=== PATIENT | female | born 1945 | race Caucasian/White ===

== ENCOUNTER 2020-02-26 09:30 | Outpatient (CLI) | payer MEDICARE, SELFPAY ==
--- NOTE | ~2020-02-26 | XR_ITS ---
XR foot RT min 3V DATE: 02/26/2020 09:47 INDICATION: Twisted foot. Roslyn a pop. Lateral foot pain. TECHNIQUE: 4 views COMPARISON: None FINDINGS: There is a transverse nondisplaced fracture at the base of the fifth metatarsal bone. Diffuse osteopenia. IMPRESSION: Nondisplaced transverse fracture of the base of the fifth metatarsal bone Osteopenia Reviewed, dictated and finalized at location B. IMPRESSION: Nondisplaced transverse fracture of the base of the fifth metatarsa l bone Osteopenia
== END 2020-02-26 09:31 | disposition home or self-care (01) ==
PROVIDERS: PCP Internal Medicine; Visit Provider Internal Medicine
DX: M79.671 Pain in right foot (principal)
CPT/HCPCS: 73630

== ENCOUNTER 2020-08-12 13:59 | Outpatient (CLI) | payer MEDICARE, SELFPAY ==
[2020-08-12 15:22] LABS: SARS-CoV-2 Ag Negative (Negative)
[2020-08-13 01:27] LABS: SARS-CoV-2 RNA PCR Negative
== END 2020-08-12 14:00 | disposition home or self-care (01) ==
LOC: CHSLAB 14:04
PROVIDERS: PCP Internal Medicine; Visit Provider Internal Medicine
DX: Z20.822 Contact with and (suspected) exposure to COVID-19 (principal)
CPT/HCPCS: 87426; C9803; U0003; U0005

== ENCOUNTER 2021-01-28 11:38 | Outpatient (CLI) | payer MEDICARE, SELFPAY ==
--- NOTE | ~2021-01-28 | XR_ITS ---
XR chest 2V DATE: 01/28/2021 12:10 INDICATION: Asthma exacerbation TECHNIQUE: PA and lateral views COMPARISON: 05/24/2017 two-view chest FINDINGS: Bilateral hyperinflation consistent with obstructive airways disease. No pulmonary infiltrate or consolidation, pleural effusion or pulmonary vascular congestion or pneumo thorax is evident. Normal heart size. No hilar or mediastinal enlargement. Diffuse osteopenia. IMPRESSION: Bilateral hyperinflation; no active cardiac pulmonary disease Osteopenia Reviewed, dictated and finalized at location A.
[2021-01-28 11:57] LABS: Add Urine Microscopic? NO; Appearance Urine Clear (Clear); Bilirubin Urine Negative (Negative); Blood Urine Negative (Negative); Color Urine Light Yellow (Yellow); Glucose Urine UA Negative (Negative); Ketones Urine Negative (Negative); Leukocyte Esterase Ur Negative LEU/UL (Negative); Nitrate Urine Negative (Negative); Protein Urine Negative (Negative); Urobilinogen Urine 0.2 mg/dL (0.2-1.0)
[2021-01-28 12:10] LABS: Alanine Aminotransferase 22 U/L (14-59); Alkaline Phosphatase 95 U/L (46-116); Anion Gap 11 mmol/L (8-16); Aspartate Amino Transferase 18 U/L (15-37); Bilirubin,Total 0.7 mg/dL (0.00-1.00); Blood Urea Nitrogen 18 mg/dL (7-18); CRP < 0.5 mg/dL (0.0-0.9); Calcium 8.7 mg/dL (8.5-10.1); Carbon Dioxide 28 mmol/L (21-32); Chloride 104 mmol/L (98-108); Estimated Glomerular Filt Rate > 60; Glucose 106 mg/dL (70-99); Osmolality Calculated 297 mOsm/kg (285-295); Potassium 3.8 mmol/L (3.5-5.1); Sodium 143 mmol/L (136-145); Total Protein 7.3 g/dL (6.4-8.2)
[2021-01-28 12:12] LABS: Basophils Absolute Auto 0.05 K/mm3 (0.00-0.10); Basophils Percent Auto 0.8 % (0.0-1.0); Eosinophils Absolute Auto 0.55 K/mm3 (0.02-0.50); Eosinophils Percent Auto 8.8 % (1.0-6.0); Hematocrit 42.3 % (35.0-42.0); Hemoglobin 13.6 g/dL (11.7-13.8); Immature Granulocyte Absolute 0.01 K/mm3 (0.00-0.00); Immature Granulocyte Percent A 0.2 % (0.0-0.0); Lymphocytes Absolute Auto 1.94 K/mm3 (1.10-4.50); Lymphocytes Percent Auto 31.1 % (18.0-42.0); Mean Corpuscular HGB Conc 32.2 g/dL (32.0-36.0); Mean Corpuscular Hemoglobin 29.8 pg (27.0-31.0); Mean Corpuscular Volume 92.6 fL (78.0-102.0); Mean Platelet Volume 10.7 fl (9.2-11.8); Monocytes Absolute Auto 0.43 K/mm3 (0.10-0.90); Monocytes Percent Auto 6.9 % (2.0-11.0); Neutrophils Absolute Auto 3.3 K/mm3 (1.7-7.2); Neutrophils Percent Auto 52.2 % (50.0-70.0); Platelet Count Result 248 K/mm3 (150-420); Red Blood Count 4.57 M/mm3 (4.20-5.40); White Blood Count 6.2 K/mm3 (4.8-10.8)
== END 2021-01-28 11:39 | disposition home or self-care (01) ==
LOC: CHSLAB 11:41
PROVIDERS: PCP Internal Medicine; Visit Provider Internal Medicine
DX: J45.901 Unspecified asthma with (acute) exacerbation (principal)
CPT/HCPCS: 36415; 71046; 80053; 81003; 85025; 86140

== ENCOUNTER 2021-07-22 10:57 | Outpatient (CLI) | payer MEDICARE, SELFPAY ==
[2021-07-22 12:04] LABS: Influenza Control Valid (Valid)
[2021-07-22 12:12] LABS: SARS-CoV-2 Ag Negative (Negative)
== END 2021-07-22 10:58 | disposition home or self-care (01) ==
LOC: CHSLAB 11:00
PROVIDERS: PCP Internal Medicine; Visit Provider Internal Medicine
DX: J06.9 Acute upper respiratory infection, unspecified (principal); Z20.822 Contact with and (suspected) exposure to COVID-19
CPT/HCPCS: 87426; 87804; C9803

== ENCOUNTER 2021-12-12 11:46 | Outpatient (CLI) | payer MEDICARE, SELFPAY ==
--- NOTE | ~2021-12-12 | XR_ITS ---
XR_CERV2-3V_CR 12/12/2021 12:49 Indication: Neck pain and radiculopathy Procedure: 3 views of the cervical spine Comparison: No prior studies for comparison. Findings: There is mild degenerative disc disease at C5-6 and C6-7. There is mild multilevel uncinate hypertrophy. Lung apices are normal. No acute fracture or traumatic malalignment. No prevertebral so ft tissue swelling. There are ventral osteophytes at C4-5, C5-6 and C6-7. Odontoid process within nor mal limits. Impression: 1: Moderate cervical spondylosis. Reviewed, dictated and finalized at location A. Impression: 1: Moderate cervical spondylosis.
--- NOTE | ~2021-12-12 | XR_ITS ---
EXAM: XR shoulder RT min 2V DATE: 12/12/2021 12:49 HISTORY: R UE RADICULOPATHY . COMPARISON: None available. FINDINGS: Osteopenia. No fracture or dislocation. No lytic or blastic lesion. Glenohumeral narrowing . No erosion or periosteal change. Calcified hilar nodes. Soft tissues within normal limits. IMPRESSION: No acute osseous finding in the right shoulder. Reviewed, dictated and finalized at location K.
[2021-12-12 12:16] LABS: Basophils Absolute Auto 0.07 K/mm3 (0.00-0.10); Eosinophils Percent Auto 7.3 % (1.0-6.0); Hematocrit 44.7 % (35.0-42.0); Hemoglobin 14.4 g/dL (11.7-13.8); Immature Granulocyte Absolute 0.01 K/mm3 (0.00-0.00); Immature Granulocyte Percent A 0.1 % (0.0-0.0); Lymphocytes Absolute Auto 1.38 K/mm3 (1.10-4.50); Lymphocytes Percent Auto 20.2 % (18.0-42.0); Mean Corpuscular HGB Conc 32.2 g/dL (32.0-36.0); Mean Corpuscular Hemoglobin 30.5 pg (27.0-31.0); Mean Corpuscular Volume 94.7 fL (78.0-102.0); Mean Platelet Volume 10.7 fl (9.2-11.8); Monocytes Absolute Auto 0.39 K/mm3 (0.10-0.90); Monocytes Percent Auto 5.7 % (2.0-11.0); Neutrophils Absolute Auto 4.5 K/mm3 (1.7-7.2); Neutrophils Percent Auto 65.7 % (50.0-70.0); Platelet Count Result 261 K/mm3 (150-420); Red Blood Count 4.72 M/mm3 (4.20-5.40); Red Cell Distribution Width 12.8 % (11.6-14.4); White Blood Count 6.8 K/mm3 (4.8-10.8)
[2021-12-12 12:33] LABS: Alanine Aminotransferase 29 U/L (14-59); Alkaline Phosphatase 105 U/L (46-116); Anion Gap 6 mmol/L (8-16); Aspartate Amino Transferase 24 U/L (15-37); Bilirubin,Total 0.9 mg/dL (0.00-1.00); Blood Urea Nitrogen 10 mg/dL (7-18); Carbon Dioxide 31 mmol/L (21-32); Chloride 101 mmol/L (98-108); Estimated Glomerular Filt Rate > 60; Glucose 96 mg/dL (70-99); Osmolality Calculated 285 mOsm/kg (285-295); Potassium 3.7 mmol/L (3.5-5.1); Sodium 138 mmol/L (136-145); Total Protein 7.8 g/dL (6.4-8.2)
[2021-12-12 12:35] LABS: CRP < 0.2 mg/dL (0.0-0.9)
== END 2021-12-12 11:47 | disposition home or self-care (01) ==
LOC: CHSLAB 11:53
PROVIDERS: PCP Internal Medicine; Visit Provider Internal Medicine
DX: M47.22 Other spondylosis with radiculopathy, cervical region (principal); G62.9 Polyneuropathy, unspecified
CPT/HCPCS: 36415; 72040; 73030; 80053; 85025; 86038; 86039; 86140; 86787

== ENCOUNTER 2021-12-27 10:41 | Outpatient (CLI) | payer MEDICARE, SELFPAY ==
[2021-12-30 20:54] LABS: Varicella IgM Antibody <=0.90 (<=0.90)
== END 2021-12-27 10:42 | disposition home or self-care (01) ==
LOC: CHSLAB 10:46
PROVIDERS: PCP Internal Medicine; Visit Provider Internal Medicine
DX: G62.9 Polyneuropathy, unspecified (principal)
CPT/HCPCS: 36415; 86787

== ENCOUNTER 2022-03-10 15:09 | Emergency (ER) | payer MEDICARE, SELFPAY ==
--- NOTE | ~2022-03-10 | XR_ITS ---
XR chest 1V portable 03/10/2022 15:47 Indication: Shortness of breath Procedure: AP portable chest Comparison: 01/28/2021 Findings: Heart size normal. No focal air space disease, pulmonary edema, pleural effusion or suspect ed pneumothorax. Chronic bibasilar atelectasis/scarring. The lungs are hyperinflated which is consist ent with, but not diagnostic of chronic obstructive pulmonary disease. Impression: 1: No acute cardiopulmonary disease. Reviewed, dictated and finalized at location B. Impression: 1: No acute cardiopulmonary disease.
[2022-03-10 15:09] VITALS: BP 154/79; PULSE 81; RESP 20; TEMP 36.7; O2SAT 93
--- NOTE | 2022-03-10 15:16 | ED.SOB ---
HPI - SOB/Dyspnea General Chief Complaint: Shortness of Breath/Dyspnea Stated Complaint: ambulance Time Seen by Provider: 03/10/22 15:16 Source: patient Mode of arrival: EMS History of Present Illness HPI Narrative: 77-year-old female with a history of COPD/ asthma on chronic steroids presents to the ER with a 10 day history of -- cough with mucopurulent sputum -- wheezing -- shortness of breath -- nasal congestion MD elicited complaint: shortness of breath and cough Pertinent past history: COPD and asthma Onset (ago): day(s) ( started around 7 days ago) Timing: constant Severity: moderate Exacerbating factors: nothing Relieving factors: nothing Known history of: COPD and asthma Associated symptoms: denies other symptoms Treatment prior to arrival: none Related Data Allergies Allergy/AdvReac Type Severity Reaction Status Date / Time iodine Allergy Severe NEUROPATHY Verified 09/18/12 12:12 fluticasone Allergy Unknown RESP Verified 09/18/12 12:12 DISTRESS Review of Systems Review of Systems: All systems reviewed & are unremarkable except as noted in HPI and below Constitutional: Constitutional: Reports as per HPI and Reports no additional constitutional complaints Eyes: Eyes: Reports as per HPI and Reports no additional eye complaints ENT: Reports system reviewed and no additional complaints, except as documented and Reports as per HPI Cardiovascular: Cardiovascular: Reports as per HPI and Reports no additional cardiovascular complaints Respiratory: Respiratory: Reports as per HPI, Reports no additional respiratory complaints, Reports cough, Reports dyspnea and Reports wheezing Gastrointestinal: Gastrointestinal: Reports as per HPI and Reports no additional gastrointestinal complaints Genitourinary: Genitourinary: Reports no additional female genitourinary complaints Musculoskeletal: Musculoskeletal: Reports no additional musculoskeletal complaints and Reports as per HPI Integumentary/Breasts: Skin/Breast: Reports system reviewed and no additional complaints, except as docu and Reports as per HPI Neurologic: Reports system reviewed and no additional complaints, except as documented and Reports as per HPI Psychiatric: Psychiatric: Reports no additional psychiatric complaints and Reports as per HPI Endocrine: Endocrine: Reports no additional endocrine complaints and Reports as per HPI Hematologic/Lymphatic: Hematologic/Lymphatic: Reports no additional hematologic/lymphatic complaints and Reports as per HPI Allergic/Immunologic: Allergic/Immunologic: Reports no additional allergic/immunologic complaints and Reports as per HPI [facility] Past Medical History Medical History (Updated 03/10/22 @ 18:07 by Tyrell Cervantes MD) COPD (chronic obstructive pulmonary disease) Family History Family History Father Family history of rheumatoid arthritis Hypertension Family history of elevated blood lipids, Onset Age: 90 Patient's father is Mother Family history of rheumatic fever Hypertension Social History Social History Second hand tobacco smoke exposure: No Alcohol intake: current Exam Const: General: ill appearing Nutritional Appearance: thin Orientation/consciousness: patient oriented x3 Limitations: no limitations HENMT: Head: normal to inspection Ears: external ears normal General nose exam: Normal external nose present Face and sinus: normal facial exam Mouth: Yes Normal oral and palatal mucosa present Throat: posterior oropharynx normal Eyes: Conjunctivae: conjunctivae normal Pupils: Equal, round and reactive pupils present EOM: EOMs intact bilaterally Direct Ophthalmoscopy: no photophobia Neck: Neck: normal visual inspection, no lymphadenopathy and no meningeal signs Resp: Effort & Inspection: labored and uses accessory muscles Auscultation: wheezes a
--- NOTE | 2022-03-10 15:32 | ECG_ITS ---
Measurements Intervals Garner Rate: 82 P: 82 ME: 180 QRS: 53 QRSD: 82 T: 71 QT: 382 QTc: 449 Interpretive Statements SINUS RHYTHM WITH OCCASIONAL SUPRAVENTRICULAR PREMATURE COMPLEXES NONSPECIFIC ST CHANGES NO PREVIOUS ECG AVAILABLE FOR COMPARISON Electronically Signed On 03-11-2022 13:44:04 CDT by Jessica Aguilera M.D.
[2022-03-10 15:35] VITALS: PULSE 81
[2022-03-10 15:49] LABS: Base Excess ABG -2.3 mmol/L (0-2); Device ROOM AIR; HCO3 ABG 21.2 mmol/L (23-29); Modified Allen's Test Pass; Oxygen Content ABG 18.4 %vol (16.0-22.0); Oxygen Saturation ABG 89.7 % (95-97); Oxyhemoglobin 89.3 % (94-100); PO2 ABG 54.7 mmHg (75-85); Site Drawn RIGHT RADIAL; Total Hemoglobin 14.7 g/dL (12.0-18.0); pH ABG 7.43 (7.35-7.45)
[2022-03-10 15:55] LABS: Basophils Absolute Auto 0.05 K/mm3 (0.00-0.10); Basophils Percent Auto 0.8 % (0.0-1.0); Eosinophils Absolute Auto 0.63 K/mm3 (0.02-0.50); Eosinophils Percent Auto 9.9 % (1.0-6.0); Hemoglobin 13.6 g/dL (11.7-13.8); Immature Granulocyte Absolute 0.01 K/mm3 (0.00-0.00); Immature Granulocyte Percent A 0.2 % (0.0-0.0); Lymphocytes Absolute Auto 2.07 K/mm3 (1.10-4.50); Lymphocytes Percent Auto 32.5 % (18.0-42.0); Mean Corpuscular HGB Conc 32.4 g/dL (32.0-36.0); Mean Corpuscular Hemoglobin 30.4 pg (27.0-31.0); Mean Platelet Volume 10.2 fl (9.2-11.8); Monocytes Absolute Auto 0.42 K/mm3 (0.10-0.90); Monocytes Percent Auto 6.6 % (2.0-11.0); Neutrophils Absolute Auto 3.2 K/mm3 (1.7-7.2); Platelet Count Result 239 K/mm3 (150-420); Red Blood Count 4.47 M/mm3 (4.20-5.40); Red Cell Distribution Width 13.3 % (11.6-14.4); White Blood Count 6.4 K/mm3 (4.8-10.8)
[2022-03-10 16:14] LABS: Alanine Aminotransferase 23 U/L (14-59); Alkaline Phosphatase 84 U/L (46-116); Anion Gap 11 mmol/L (8-16); Aspartate Amino Transferase 19 U/L (15-37); Bilirubin,Total 0.9 mg/dL (0.00-1.00); Blood Urea Nitrogen 10 mg/dL (7-18); Calcium 8.8 mg/dL (8.5-10.1); Carbon Dioxide 25 mmol/L (21-32); Chloride 99 mmol/L (98-108); Estimated Glomerular Filt Rate > 60; Glucose 119 mg/dL (70-99); NT Pro B Type Natriuretic Pept 90 pg/mL (0-450); Osmolality Calculated 280 mOsm/kg (285-295); Potassium 3.1 mmol/L (3.5-5.1); Sodium 135 mmol/L (136-145); Total Protein 7.2 g/dL (6.4-8.2)
[2022-03-10 16:17] LABS: Troponin I 86.8 ng/L (0.00-60.4)
[2022-03-10 16:28] LABS: Influenza A QL RT-PCR Negative (Negative); Influenza B QL RT-PCR Negative (Negative); SARS-CoV-2 RNA PCR Negative (Negative)
[2022-03-10 17:20] VITALS: BP 142/88; PULSE 92; RESP 20; O2SAT 87
[2022-03-10] MEDS: POTASSIUM CHLORIDE 20 MEQ TABLET 40 MEQ PO (17:37)
--- NOTE | 2022-03-10 17:37 | PC.NURSE ---
pt ambulated to bathroom, increased shortness of breath.
[2022-03-10 17:38] LABS: Add Urine Microscopic? YES; Appearance Urine Clear (Clear); Bilirubin Urine Negative (Negative); Blood Urine Trace-Intact (Negative); Color Urine Light Yellow (Yellow); Glucose Urine UA Negative (Negative); Ketones Urine 1+ (Negative); Leukocyte Esterase Ur Negative (Negative); Nitrate Urine Negative (Negative); Protein Urine 1+ (Negative); Urobilinogen Urine 0.2 mg/dL (0.2-1.0)
[2022-03-10 17:41] LABS: Bacteria Urine Trace /hpf; RBC Urine 0-2 /hpf (0-2); Squamous Epithelial Cell Urine Few /hpf (Few); WBC Urine None seen /hpf (0-3)
[2022-03-10 18:04] VITALS: BP 142/85; PULSE 81; RESP 20; TEMP 37.1; O2SAT 97
--- NOTE | 2022-03-10 18:47 | PC.NURSE ---
1830 pt taken to bathroom then loaded to ems cot. increased shortness of breath with exertion. oxygen in place . pt alert and oriented. pt family member notified of facility , room and phone number for [facility].
== END 2022-03-10 18:45 | disposition short-term general hospital (02) ==
PROVIDERS: Emergency Provider Internal Medicine Critical Care Medicine; PCP Internal Medicine
DX: J96.01 Acute respiratory failure with hypoxia (principal); J44.1 Chronic obstructive pulmonary disease with (acute) exacerbation; I21.4 Non-ST elevation (NSTEMI) myocardial infarction; D72.10 Eosinophilia, unspecified; Z20.822 Contact with and (suspected) exposure to COVID-19
CPT/HCPCS: 36600; 71045; 80053; 81001; 82805; 83605; 83880; 84484; 85025; 87502; 87804; 93005; 96365; 96367; 99285; A9270; C9803; J0456; J0696; U0003; U0005

== ENCOUNTER 2022-03-17 15:05 | Outpatient (CLI) | payer MEDICARE, SELFPAY ==
[2022-03-17 15:27] LABS: Hematocrit 37.9 % (35.0-42.0); Hemoglobin 12.7 g/dL (11.7-13.8); Immature Granulocyte Absolute 0.02 K/mm3 (0.00-0.00); Immature Granulocyte Percent A 0.3 % (0.0-0.0); Lymphocytes Absolute Auto 0.77 K/mm3 (1.10-4.50); Lymphocytes Percent Auto 11.9 % (18.0-42.0); Mean Corpuscular HGB Conc 33.5 g/dL (32.0-36.0); Mean Corpuscular Hemoglobin 31.1 pg (27.0-31.0); Mean Corpuscular Volume 92.7 fL (78.0-102.0); Mean Platelet Volume 10.2 fl (9.2-11.8); Monocytes Absolute Auto 0.18 K/mm3 (0.10-0.90); Monocytes Percent Auto 2.8 % (2.0-11.0); Neutrophils Absolute Auto 5.5 K/mm3 (1.7-7.2); Platelet Count Result 250 K/mm3 (150-420); Red Blood Count 4.09 M/mm3 (4.20-5.40); White Blood Count 6.5 K/mm3 (4.8-10.8)
[2022-03-17 15:40] LABS: Anion Gap 5 mmol/L (8-16); Blood Urea Nitrogen 15 mg/dL (7-18); Calcium 8.7 mg/dL (8.5-10.1); Carbon Dioxide 28 mmol/L (21-32); Chloride 98 mmol/L (98-108); Estimated Glomerular Filt Rate > 60; Glucose 120 mg/dL (70-99); Osmolality Calculated 273 mOsm/kg (285-295); Potassium 3.7 mmol/L (3.5-5.1); Sodium 131 mmol/L (136-145)
== END 2022-03-17 15:06 | disposition home or self-care (01) ==
LOC: CHSLAB 15:11
PROVIDERS: PCP Internal Medicine
DX: J96.01 Acute respiratory failure with hypoxia (principal)
CPT/HCPCS: 36415; 80048; 85025

== ENCOUNTER 2022-04-03 08:03 | Outpatient (RCR) | payer MEDICARE, SELFPAY ==
--- NOTE | 2022-04-03 12:08 | PTOPEVAL1 ---
Evaluation Information Assessment Status Evaluation Diagnosis Unsteady gait Onset 03/21/2022 Subjective Information Pt reports that she has been diagnosed with peripheral neuropathy and reports that this started after she got an MRI for her lungs. She feels that this is a reaction to the contrast-dye from the MRI. She reports that this got better after the initial onset but is still not 100%. She still has a lot of numbness and occasional pain that is sharp. Pt reports that she has had one fall in 2019 when she was cleaning out her applique sewer drain and slipped on algae. She fell and broke her elbow and shoulder but feels this was not so much because of her feet. She feels that is very careful, and took a fall prevention class recently . She also feels she is weaker. She feels the most off-balance when walking. She has 15 steps down into her basement that she uses at least once a day. Lives at home by herself. Has no pets at home . Has a walker, cane, and wheelchair at home but she does not use them. Reported Pain Level Pain Score 0: Self Report Assessment PT Clinical Summary Pt presents to physical therapy with unsteady gait due to peripheral neuropathy and demonstrates decreased strength and impaired static and dynamic balance. These deficits place her at an increased risk for falls and make it more difficulty for her to walk and work around her house without feelings of unsteadiness. She demonstrates the most balance difficulties with NBOS and visual suppression activities. She was provided with an HEP focused on safely improving balance strategies and strength. She will benefit from skilled PT to improve the aforementioned impairments, reduce risk for falls, and return to functional and recreational activities. Plan of Care Interventions Gait Training,Neuro Re-education,Patient/Caregiver Educati,Therapeutic Activities,Therapeutic Exercise PT Services Indicated Yes Treatment Frequency and 2x week for 10 visits Duration These treatments will address the objective and functional deficits as defined above. The patient will be advanced safely and appropriately in order for the patient to progress towards his/her prior level of function. Additional exercises will be introduced and as well as a comprehensive home exercise program upon discharge, if needed, ?to ensure carryover of functional ga
== END 2022-05-03 15:27 | disposition home or self-care (01) ==
LOC: CHSPT 08:03
PROVIDERS: PCP Internal Medicine; Visit Provider Internal Medicine
DX: R26.81 Unsteadiness on feet (principal); G62.9 Polyneuropathy, unspecified
CPT/HCPCS: 97110; 97112; 97161; 97530

== ENCOUNTER 2023-02-26 10:51 | Outpatient (CLI) | payer MEDICARE, SELFPAY ==
--- NOTE | ~2023-02-26 | CT_ITS ---
EXAMINATION: CT abdomen pelvis wo con DATE: 02/26/2023 12:09 INDICATION: Bowel obstruction. Right lower quadrant abdominal pain. TECHNIQUE: Computed tomography (CT) of the abdomen and pelvis was performed without intravenous contr ast. Automated exposure control and iterative reconstruction technique were employed. The dose-length product was 171.30 mGy-cm. COMPARISON: CT abdomen and pelvis 03/22/17, 09/15/12 FINDINGS: The visualized portions of the lung bases demonstrate mild atelectasis. No pleural effusion . The heart size is normal. No pericardial effusion. There is diffuse hepatic steatosis. The gallblad larry, spleen, are normal. There is fatty atrophy of the pancreas. There are multiple cystic lesions in the pancreas measuring up to 3.3 x 2.3 cm, worsened from 2.1 x 1.7 cm on 03/22/17. The adrenal glands and kidneys are normal. There is no urolithiasis. There is an anastomosis in the rectosigmoid. There are no dilated loops of bowel. The appendix is not visualized. Aortic atherosclerosis is noted. Ther e are no pathologically enlarged lymph nodes. There is no free intraperitoneal fluid. There is severe lower lumbar spondylosis. IMPRESSION: 1. Worsened cystic lesions of the pancreas. The differential diagnosis includes pseudocyst, intraduct al papillary mucinous neoplasm (IPMN), mucinous cystic neoplasm (MCN), serous cystadenoma, and neuroe ndocrine tumor. Consider abdomen MRI without and with contrast. Reviewed, dictated and finalized at location A. IMPRESSION: 1. Worsened cystic lesions of the pancreas. The differential diagnosis includes pseudocyst, intraductal papillary mucinous neoplasm (IPMN), mucinous cystic ne oplasm (MCN), serous cystadenoma, and neuroendocrine tumor. Consider abdomen MR I without and with contrast.
[2023-02-26 11:07] LABS: Basophils Absolute Auto 0.05 K/mm3 (0.00-0.10); Basophils Percent Auto 0.9 % (0.0-1.0); Eosinophils Absolute Auto 0.18 K/mm3 (0.02-0.50); Eosinophils Percent Auto 3.2 % (1.0-6.0); Hematocrit 42.2 % (35.0-42.0); Hemoglobin 14.3 g/dL (11.7-13.8); Immature Granulocyte Absolute 0.01 K/mm3 (0.00-0.00); Immature Granulocyte Percent A 0.2 % (0.0-0.0); Lymphocytes Absolute Auto 1.21 K/mm3 (1.10-4.50); Lymphocytes Percent Auto 21.3 % (18.0-42.0); Mean Corpuscular HGB Conc 33.9 g/dL (32.0-36.0); Mean Corpuscular Volume 91.3 fL (78.0-102.0); Mean Platelet Volume 9.9 fl (9.2-11.8); Monocytes Absolute Auto 0.43 K/mm3 (0.10-0.90); Monocytes Percent Auto 7.6 % (2.0-11.0); Neutrophils Absolute Auto 3.8 K/mm3 (1.7-7.2); Neutrophils Percent Auto 66.8 % (50.0-70.0); Platelet Count Result 263 K/mm3 (150-420); Red Blood Count 4.62 M/mm3 (4.20-5.40); White Blood Count 5.7 K/mm3 (4.8-10.8)
[2023-02-26 11:22] LABS: Alanine Aminotransferase 51 U/L (14-59); Albumin Level 4.2 g/dL (3.4-5.0); Alkaline Phosphatase 80 U/L (46-116); Amylase 37 U/L (25-115); Anion Gap 14 mmol/L (8-16); Aspartate Amino Transferase 45 U/L (15-37); Bilirubin,Total 2.7 mg/dL (0.00-1.00); Blood Urea Nitrogen 21 mg/dL (7-18); Calcium 9.3 mg/dL (8.5-10.1); Carbon Dioxide 26 mmol/L (21-32); Chloride 99 mmol/L (98-108); Estimated Glomerular Filt Rate > 60; Glucose 90 mg/dL (70-99); Lipase 18 U/L (16-77); Osmolality Calculated 291 mOsm/kg (285-295); Potassium 3.9 mmol/L (3.5-5.1); Sodium 139 mmol/L (136-145); Total Protein 7.4 g/dL (6.4-8.2)
[2023-02-26 13:31] LABS: Appearance Urine Clear (Clear); Bilirubin Urine 1+ (Negative); Blood Urine Negative (Negative); Color Urine Yellow (Yellow); Glucose Urine UA Negative (Negative); Ketones Urine 2+ (Negative); Leukocyte Esterase Ur Negative (Negative); Nitrate Urine Negative (Negative); Protein Urine Trace (Negative); Specific Grav Ur 1.025 (1.010-1.020); Urobilinogen Urine 0.2 mg/dL (0.2-1.0)
[2023-02-26 13:36] LABS: Add Urine Microscopic? YES; Bacteria Urine Trace /hpf; Mucus Urine Moderate /lpf; RBC Urine 0-2 /hpf (0-2); Squamous Epithelial Cell Urine Rare /hpf (Few); WBC Urine 0-3 /hpf (0-3)
[2023-03-03 13:37] LABS: CA 19-9 8 U/mL (<34); Carcinoembryonic Antigen 3.3 ng/mL (<2.5)
== END 2023-02-26 10:52 | disposition home or self-care (01) ==
LOC: CHSLAB 10:54
PROVIDERS: PCP Internal Medicine; Visit Provider Internal Medicine
DX: K56.609 Unspecified intestinal obstruction, unspecified as to partial versus complete obstruction (principal); D49.0 Neoplasm of unspecified behavior of digestive system; C25.9 Malignant neoplasm of pancreas, unspecified
CPT/HCPCS: 36415; 74176; 80053; 81001; 82150; 82378; 83690; 85025; 86301

== ENCOUNTER 2023-04-23 14:03 | Outpatient (CLI) | payer MEDICARE, SELFPAY ==
[2023-04-23 14:47] LABS: Alanine Aminotransferase 21 U/L (6-35); Albumin Level 4.5 g/dL (3.5-5.1); Alkaline Phosphatase 89 U/L (38-126); Aspartate Amino Transferase 36 U/L (14-36)
== END 2023-04-23 14:04 | disposition home or self-care (01) ==
LOC: ANHLAB 14:05
PROVIDERS: PCP Internal Medicine; Visit Provider Nurse Practitioner
DX: K86.9 Disease of pancreas, unspecified (principal); R17 Unspecified jaundice
CPT/HCPCS: 36415; 80076

== ENCOUNTER 2023-09-11 14:43 | Outpatient (CLI) | payer MEDICARE, SELFPAY ==
--- NOTE | ~2023-09-11 | CT_ITS ---
EXAMINATION: CT diagnostic chest wo con DATE: 09/11/2023 16:46 INDICATION: Chest pain, peripheral neuropathy TECHNIQUE: Computed tomography (CT) of the chest was performed without intravenous contrast. The dose -length product (DLP) was 124.88 mGy-cm. Automated exposure control and iterative reconstruction tech nique were employed. COMPARISON: None FINDINGS: There is moderate emphysema. There is a possible endobronchial lesion proximally in the rig ht lower lobe (image 72). No pleural effusion or pneumothorax. Calcified pulmonary nodules and calcif ied mediastinal lymph nodes are consistent with old granulomatous disease. No pathologically enlarged thoracic lymph nodes are identified. The heart size is normal. There is a healing anterior left fift h rib fracture. There is moderate thoracic spondylosis. Cystic lesion of the pancreas are again noted with follow-up recommendation unchanged. IMPRESSION: 1. Healing anterior left fifth rib fracture. 2. Possible endobronchial lesion in the right lower lobe. Finding could reflect mucous plugging versu s malignancy. Follow-up low-dose chest CT in three months is recommended. Reviewed, dictated and finalized at location L. BUILDER IMPRESSION: 1. Healing anterior left fifth rib fracture. 2. Possible endobronchial lesion in the right lower lobe. Finding could reflect mucous plugging versus malignancy. Follow-up low-dose chest CT in three months is recommended.
[2023-09-11 15:26] LABS: Basophils Absolute Auto 0.04 K/mm3 (0.00-0.10); Basophils Percent Auto 0.6 % (0.0-1.0); Eosinophils Absolute Auto 0.36 K/mm3 (0.02-0.50); Eosinophils Percent Auto 5.3 % (1.0-6.0); Hematocrit 41.6 % (35.0-42.0); Hemoglobin 13.5 g/dL (11.7-13.8); Immature Granulocyte Absolute 0.02 K/mm3 (0.00-0.00); Immature Granulocyte Percent A 0.3 % (0.0-0.0); Lymphocytes Absolute Auto 1.38 K/mm3 (1.10-4.50); Lymphocytes Percent Auto 20.2 % (18.0-42.0); Mean Corpuscular HGB Conc 32.5 g/dL (32.0-36.0); Mean Corpuscular Hemoglobin 30.2 pg (27.0-31.0); Mean Corpuscular Volume 93.1 fL (78.0-102.0); Mean Platelet Volume 10.6 fl (9.2-11.8); Monocytes Absolute Auto 0.49 K/mm3 (0.10-0.90); Monocytes Percent Auto 7.2 % (2.0-11.0); Neutrophils Absolute Auto 4.5 K/mm3 (1.7-7.2); Neutrophils Percent Auto 66.4 % (50.0-70.0); Platelet Count Result 236 K/mm3 (150-420); Red Blood Count 4.47 M/mm3 (4.20-5.40); Red Cell Distribution Width 12.8 % (11.6-14.4); White Blood Count 6.8 K/mm3 (4.8-10.8)
[2023-09-11 15:31] LABS: Appearance Urine Clear (Clear); Bilirubin Urine Negative (Negative); Blood Urine Negative (Negative); Color Urine Light Yellow (Yellow); Glucose Urine UA Negative (Negative); Ketones Urine Negative (Negative); Leukocyte Esterase Ur 1+ (Negative); Nitrate Urine Negative (Negative); Protein Urine Negative (Negative); Specific Grav Ur <= 1.005 (1.010-1.020); Urobilinogen Urine 0.2 mg/dL (0.2-1.0)
[2023-09-11 15:35] LABS: Add Urine Microscopic? YES; Bacteria Urine Trace /hpf; RBC Urine None seen /hpf (0-2); Squamous Epithelial Cell Urine Rare /hpf (Few)
[2023-09-11 15:36] LABS: D Dimer 0.42 mg/L (0.19-0.50)
[2023-09-11 15:48] LABS: Alanine Aminotransferase 27 U/L (14-59); Albumin Level 3.8 g/dL (3.4-5.0); Alkaline Phosphatase 101 U/L (46-116); Anion Gap 11 mmol/L (8-16); Aspartate Amino Transferase 23 U/L (15-37); Bilirubin,Total 0.9 mg/dL (0.00-1.00); Blood Urea Nitrogen 12 mg/dL (7-18); Calcium 8.7 mg/dL (8.5-10.1); Carbon Dioxide 27 mmol/L (21-32); Chloride 100 mmol/L (98-108); Creatine Kinase 102 U/L (26-192); Estimated Glomerular Filt Rate > 60; Glucose 95 mg/dL (70-99); Osmolality Calculated 285 mOsm/kg (285-295); Potassium 3.2 mmol/L (3.5-5.1); Sodium 138 mmol/L (136-145); Total Protein 7.4 g/dL (6.4-8.2); Troponin I 11.9 ng/L (0.00-60.4)
[2023-09-11 15:50] LABS: CRP < 0.1 mg/dL (0.0-0.9)
[2023-09-14 19:28] LABS: ANCA Screen Negative (Negative)
== END 2023-09-11 14:44 | disposition home or self-care (01) ==
PROVIDERS: PCP Internal Medicine; Visit Provider Internal Medicine
DX: R10.9 Unspecified abdominal pain (principal); R07.9 Chest pain, unspecified; S22.32XD Fracture of one rib, left side, subsequent encounter for fracture with routine healing; R91.8 Other nonspecific abnormal finding of lung field
CPT/HCPCS: 36415; 71250; 80053; 81001; 82550; 82553; 84484; 85025; 85380; 86036; 86140

== ENCOUNTER 2023-09-20 11:56 | Outpatient (CLI) | payer MEDICARE, SELFPAY ==
--- NOTE | ~2023-09-20 | DEXA_ITS ---
Bone Density Report Name: MIGUEL BROOKE Age: 78 Sex: Female Ethnicity: White Date of : 1945 Indication: postmenopausal; screening for osteoporosis; height loss; prior fracture; asthma or emphysema; hysterectomy; Referring Provider: MINGO GODFREY Study: Bone densitometry was performed. Exam Date: September 20, 2023 Accession number: [id number] Bone Density: Region BMD T-score Z-score Classification AP Spine(L1, L2, L3) 0.612 -3.7 -1.2 Osteoporosis Femoral Neck (Left) 0.370 -4.3 -2.1 Osteoporosis Total Hip (Left) 0.385 -4.6 -2.6 Osteoporosis World Health Organization criteria for BMD impression classify patients as: Normal (T-score at or above -1.0), Osteopenia (T-score between -1.0 and -2.5), or Osteoporosis (T-score at or below -2.5). 10-year Fracture Risk: FRAX not reported because: Some T-score for Spine Total or Hip Total or Femoral Neck at or below -2.5 Clinical Information Provided by Patient: Has had a low trauma fracture Has used the following medications: Fosamax (i.e. alendronate), Vitamin D Has the following medical conditions: Asthma or Emphysema, Hysterectomy Patient maximum height was 65 Menopause Age: 53 No regular weight bearing exercise Drinks caffeinated beverages Onset of menses at age 14 Number of children 0 Impression: The patient has established osteoporosis, based on the Left Total Hip T-score and the existence of a prior fracture. The patient has risk factors, including: previous fracture. Discussion: HIGH RISK OF FRACTURE. BONE DENSITY IS UNDESIRABLY LOW AT ONE OR MORE SKELETAL SITES, CONSISTENT WITH POSTMENOPAUSAL OSTEOPOROSIS. This patient's lowest T-score, in a patient who has previously fractured, meets the World Health Organization's (WHO) criteria for severe osteoporosis. In untreated patients, the risk of osteoporotic fracture increases approximately two-fold for each 1.0 SD decrease in T-score. Low bone density is not the only risk factor for fracture; also consider factors such as patient's age, frailty or poor health, risk of falling, risk of injury, previous osteoporotic fracture, family history of osteoporosis, cigarette smoking, low body weight, etc. Not everyone with low bone mineral density has osteoporosis; osteomalacia and other metabolic bone disorders should also be considered. Patients who have osteoporosis should be evaluated for specific diseases and conditions (secondary causes) that may cause or contribute to bone loss. The [place] Association [employer] Clinical Endocrinologists (AACE) and National Osteoporosis Foundation (NOF) recommend pharmacologic intervention for all postmenopausal women whose T-score is in this range. The patient should follow a healthful lifestyle (good nutrition with adequate calcium and vitamin D, and appropriate weight-bearing exercise). Follow-Up: Consider a repeat BMD and Vertebral Fracture Assessment (VFA) exam in 2 years or sooner if medically necessary,
== END 2023-09-20 11:57 | disposition home or self-care (01) ==
LOC: CHSIMG 11:57
PROVIDERS: PCP Internal Medicine; Visit Provider Internal Medicine
DX: Z78.0 Asymptomatic menopausal state (principal); M81.0 Age-related osteoporosis without current pathological fracture
CPT/HCPCS: 77080

== ENCOUNTER 2023-09-24 00:41 | Day surgery (SDC) | payer MEDICARE, SELFPAY ==
[2023-07-06 14:01] VITALS: BMI 20.1
[2023-09-03 13:44] VITALS: BMI 20.1
--- NOTE | 2023-09-21 12:31 | SUR.PREOP ---
Patient called regarding upcoming procedure. Reviewed preop instructions, appointment times, and procedure prep.
--- NOTE | 2023-09-21 15:05 | PM.HPGS ---
History of Present Illness History of Present Illness Consent: Risks, benefits, and alternatives have been discussed and questions answered. Patient agrees to proceed with procedure. Chief complaint: fam hx malignant neoplasm of digestive organs Narrative: Salma Zaldivar is a 78 year old female Referred for colon cancer screening. Her [place] colon[place] about 30 [place] There is apparently a family history of colon cancer Review of Systems Review of Systems: All systems reviewed & are unremarkable except as noted in HPI and below PMFSH Past Medical History Medical History Abnormal weight loss Constipation COPD (chronic obstructive pulmonary disease) Decreased appetite Elevated AST (SGOT) Elevated CEA Family hx of colon cancer Fatty pancreas History of small bowel obstruction Pancreatic lesion Total bilirubin, elevated Family History Family History Father Family history of rheumatoid arthritis Hypertension Family history of elevated blood lipids, Onset Age: 90 Patient's father is Mother Family history of rheumatic fever Hypertension Social History Social History Smoking status: Never smoker Second hand tobacco smoke exposure: No Alcohol intake: current Drinks per week: 2 Substance use: never Substance use type: does not use Living arrangements: alone Spiritual care concerns: No Meds Home Medications and Allergies Home Medications Medication Instructions Recorded Confirmed Type albuterol sulfate 1.25 mg/3 mL 1.25 mg inhalation BID PRN 03/10/22 09/24/23 History solution for nebulization Shortness Of Breath albuterol sulfate 90 mcg/actuation 2 puff inhalation BID PRN 03/10/22 09/24/23 History aerosol inhaler (Ventolin HFA) Shortness Of Breath budesonide 160 mcg-glycopyr 9 1 - 2 inh inhalation DAILY 06/19/23 09/24/23 History mcg-formot 4.8 mcg/actuation HFA inhaler (Breztri Aerosphere) cholecalciferol (vitamin D3) 10 10 mcg PO DAILY 07/06/23 09/24/23 History mcg (400 unit) tablet (Vitamin D3) fexofenadine 180 mg tablet 180 mg PO DAILY 07/06/23 09/24/23 History food supplemt, lactose-reduced 1 ea PO DAILY 07/06/23 09/24/23 History (Ensure oral liquid) polyethylene glycol 3350 17 17 g PO DAILY 07/06/23 09/24/23 History gram/dose oral powder (Miralax) psyllium husk 3.4 gram/5.4 gram 1 - 2 tsp PO DAILY 07/06/23 09/24/23 History oral powder (Metamucil) triamcinolone acetonide 55 mcg 1 spray intranasal DAILY 07/06/23 09/24/23 History nasal spray aerosol (Nasacort) Allergies Allergy/AdvReac Type Severity Reaction Status Date / Time fluticasone Allergy Severe RESP Verified 09/24/23 11:46 DISTRESS gadobenic acid Allergy Severe Flushing Verified 09/24/23 11:46 [From contrast - MRI] iodine Allergy Severe NEUROPATHY Verified 09/24/23 11:46 iohexol Allergy Severe Flushing Verified 09/24/23 11:46 [From contrast - CT, X-RAY] Exam Const: General: alert Orientation/consciousness: patient oriented x3 Resp: Auscultation: clear to auscultation bilaterally Cardio: Rhythm: regular rhythm GI: GI Palp: Yes Soft to palpation and No Tenderness to palpation present (GI) Neuro: General: patient oriented x3 Assessment and Plan Assessment and plan (1) Family hx of colon cancer: Code(s): Z80.0 - Family history of malignant neoplasm of digestive organs Status: Acute Assessment and Plan: Colonoscopy with possible biopsy or polypectomy or cautery or injection of substances.
[2023-09-24 11:52] VITALS: BP 151/70; PULSE 80; RESP 16; TEMP 36.6; O2SAT 99
[2023-09-24] MEDS: LACTATED RINGERS 1,000 ML 150 ML IV CONT (12:05)
--- NOTE | 2023-09-24 12:58 | WPDANESEPPF ---
Anes - Initial Pre Proc Eval Procedure: Operation Date: 09/24/23 13:00 Proposed Procedures p Colonoscopy - Sha Montero MD Date/Time: 09/24/23 12:58 Surgeon: Sha Montero MD Pre Op Diagnosis: fam hx malignant neoplasm of digestive organs Patient Data Age: 78 Gender: F Height: 1.57 m Weight: 47.3 kg Last Vital Signs Temp 97.8 F 09/24/23 11:52 Pulse 80 09/24/23 11:52 Resp 16 09/24/23 11:52 BP 151/70 H 09/24/23 11:52 Pulse Ox 99 09/24/23 11:52 O2 Del Method Room Air 09/24/23 11:52 Allergies Allergy/AdvReac Type Severity Reaction Status Date / Time fluticasone Allergy Severe RESP Verified 09/24/23 11:46 DISTRESS gadobenic acid Allergy Severe Flushing Verified 09/24/23 11:46 [From contrast - MRI] iodine Allergy Severe NEUROPATHY Verified 09/24/23 11:46 iohexol Allergy Severe Flushing Verified 09/24/23 11:46 [From contrast - CT, X-RAY] Home Medications Medication Instructions Recorded Confirmed Type albuterol sulfate 1.25 mg/3 mL 1.25 mg inhalation BID PRN 03/10/22 09/24/23 History solution for nebulization Shortness Of Breath albuterol sulfate 90 mcg/actuation 2 puff inhalation BID PRN 03/10/22 09/24/23 History aerosol inhaler (Ventolin HFA) Shortness Of Breath budesonide 160 mcg-glycopyr 9 1 - 2 inh inhalation DAILY 06/19/23 09/24/23 History mcg-formot 4.8 mcg/actuation HFA inhaler (Breztri Aerosphere) cholecalciferol (vitamin D3) 10 10 mcg PO DAILY 07/06/23 09/24/23 History mcg (400 unit) tablet (Vitamin D3) fexofenadine 180 mg tablet 180 mg PO DAILY 07/06/23 09/24/23 History food supplemt, lactose-reduced 1 ea PO DAILY 07/06/23 09/24/23 History (Ensure oral liquid) polyethylene glycol 3350 17 17 g PO DAILY 07/06/23 09/24/23 History gram/dose oral powder (Miralax) psyllium husk 3.4 gram/5.4 gram 1 - 2 tsp PO DAILY 07/06/23 09/24/23 History oral powder (Metamucil) triamcinolone acetonide 55 mcg 1 spray intranasal DAILY 07/06/23 09/24/23 History nasal spray aerosol (Nasacort) Patient hx anesthesia problems: none Family hx anesthesia problems: none Results Review: All pre-operative results and documents have been reviewed as part of the pre-operative evaluation. [facility] Past Medical History Medical History Abnormal weight loss Constipation COPD (chronic obstructive pulmonary disease) Decreased appetite Elevated AST (SGOT) Elevated CEA Family hx of colon cancer Fatty pancreas History of small bowel obstruction Pancreatic lesion Total bilirubin, elevated Family History Family History Father Family history of rheumatoid arthritis Hypertension Family history of elevated blood lipids, Onset Age: 90 Patient's father is Mother Family history of rheumatic fever Hypertension Social History Social History Smoking status: Never smoker Second hand tobacco smoke exposure: No Alcohol intake: current Drinks per week: 2 Substance use: never Substance use type: does not use Living arrangements: alone Spiritual care concerns: No Anes - Eval Final PreProcedure Day of Procedure 09/24/23 12:58 Patient weight: normal Heart: regular rate and rhythm Lungs: clear to auscultation Airway: Mallampati scale class II Neurological: alert and oriented Last oral intake: >/= 8 hours ASA classification: III Emergent: no Anesthetic plan: proceed Anesthesia type and monitoring: general GIVS and standard monitoring Results Review: All pre-operative results and documents have been reviewed as part of the pre-operative evaluation. Informed Consent: The patient's anesthetic plan and its attendant risks and benefits were discussed with the patient/family/POA. Questions were solicited and answers provided to the satisfaction of the patient/
[2023-09-24 13:26] VITALS: BP 123/66; PULSE 74; RESP 18; O2SAT 100
[2023-09-24 13:36] VITALS: BP 121/75; PULSE 72; RESP 18; O2SAT 100
[2023-09-24 13:46] VITALS: BP 141/72; PULSE 70; RESP 18; O2SAT 99
== END 2023-09-24 13:56 | disposition home or self-care (01) ==
PROVIDERS: PCP Internal Medicine; Visit Provider Internal Medicine Gastroenterology
PROC: 0DJD8ZZ Inspection of Lower Intestinal Tract, Via Natural or Artificial Opening Endoscopic (ICD-10-PCS; CPT 45378; principal; 2023-09-24 13:00)
DX: Z12.11 Encounter for screening for malignant neoplasm of colon (principal); D12.8 Benign neoplasm of rectum; J44.9 Chronic obstructive pulmonary disease, unspecified; Z79.51 Long term (current) use of inhaled steroids; Z80.0 Family history of malignant neoplasm of digestive organs
CPT/HCPCS: 45381; 45385; 45380; 88305; J2704; J7120

== ENCOUNTER 2023-10-20 19:04 | Emergency (ER) | payer MEDICARE, SELFPAY ==
--- NOTE | ~2023-10-20 | XR_ITS ---
EXAMINATION: XR ankle RT min 3V DATE: 10/20/2023 19:49 INDICATION: Right ankle injury and pain. TECHNIQUE: 3 views of right ankle were obtained. COMPARISON: None. FINDINGS: Bone alignment is normal. No fracture. There is mild osteoarthritis of talonavicular joint. There is ankle soft tissue swelling. IMPRESSION: 1. No fracture. Reviewed, dictated and finalized at location A. IMPRESSION: 1. No fracture.
--- NOTE | ~2023-10-20 | XR_ITS ---
EXAMINATION: XR foot RT min 3V DATE: 10/20/2023 19:49 INDICATION: Right foot injury and pain. TECHNIQUE: 3 views of right foot were obtained. COMPARISON: None. FINDINGS: Bone alignment is normal. There is a nondisplaced transverse fracture of neck of fifth meta tarsal. There is mild osteoarthritis of some of the interphalangeal joints and talonavicular joint. IMPRESSION: 1. Nondisplaced transverse fracture of neck of fifth metatarsal. Reviewed, dictated and finalized at location A.
[2023-10-20 19:08] VITALS: BP 157/93; PULSE 85; RESP 18; TEMP 37.7; O2SAT 96
--- NOTE | 2023-10-20 20:04 | ED.LOWEXIN ---
HPI - Extremity Injury (Lower) General Chief Complaint: Extremity Injury, Lower Stated Complaint: foot pain Time Seen by Provider: 10/20/23 19:08 Source: patient and EMS Mode of arrival: ambulatory Limitations: no limitations History of Present Illness HPI Narrative: this is a 78-year-old female that has a peripheral neuropathy and felt that her fitful asleep and she tripped over her right foot causing pain and mild swelling with good brisk pedal pulse on the right has good range of motion in her lower extremity and toes although painful with with weight-bearing and with palpation. MD complaint: foot injury Onset (ago): hour(s) Injury: Right: foot ( lateral aspect of the right foot pain and tenderness with palpation) Type of Injury: inversion Place: home Severity: moderate Severity scale (1-10): 4 Relieving factors: immobilization Related Data Home Medications Medication Instructions Recorded Confirmed albuterol sulfate 1.25 mg/3 mL 1.25 mg inhalation BID PRN 03/10/22 09/24/23 solution for nebulization Shortness Of Breath albuterol sulfate 90 mcg/actuation 2 puff inhalation BID PRN 03/10/22 09/24/23 aerosol inhaler (Ventolin HFA) Shortness Of Breath budesonide 160 mcg-glycopyr 9 1 - 2 inh inhalation DAILY 06/19/23 09/24/23 mcg-formot 4.8 mcg/actuation HFA inhaler (Breztri Aerosphere) cholecalciferol (vitamin D3) 10 10 mcg PO DAILY 07/06/23 09/24/23 mcg (400 unit) tablet (Vitamin D3) fexofenadine 180 mg tablet 180 mg PO DAILY 07/06/23 09/24/23 food supplemt, lactose-reduced 1 ea PO DAILY 07/06/23 09/24/23 (Ensure oral liquid) polyethylene glycol 3350 17 17 g PO DAILY 07/06/23 09/24/23 gram/dose oral powder (Miralax) psyllium husk 3.4 gram/5.4 gram 1 - 2 tsp PO DAILY 07/06/23 09/24/23 oral powder (Metamucil) triamcinolone acetonide 55 mcg 1 spray intranasal DAILY 07/06/23 09/24/23 nasal spray aerosol (Nasacort) Allergies Allergy/AdvReac Type Severity Reaction Status Date / Time fluticasone Allergy Severe RESP Verified 10/20/23 19:20 DISTRESS gadobenic acid Allergy Severe Flushing Verified 10/20/23 19:20 [From contrast - MRI] iodine Allergy Severe NEUROPATHY Verified 10/20/23 19:20 iohexol Allergy Severe Flushing Verified 10/20/23 19:20 [From contrast - CT, X-RAY] Review of Systems Review of Systems: All systems reviewed & are unremarkable except as noted in HPI and below PMFSH Past Medical History Medical History Abnormal weight loss Constipation COPD (chronic obstructive pulmonary disease) Decreased appetite Elevated AST (SGOT) Elevated CEA Family hx of colon cancer Fatty pancreas History of small bowel obstruction Pancreatic lesion Total bilirubin, elevated Family History Family History Father Family history of rheumatoid arthritis Hypertension Family history of elevated blood lipids, Onset Age: 90 Patient's father is Mother Family history of rheumatic fever Hypertension Social History Social History Smoking status: Never smoker Second hand tobacco smoke exposure: No Alcohol intake: current Drinks per week: 2 Substance use: never Substance use type: does not use Living arrangements: alone Spiritual care concerns: No Exam Const: General: healthy appearing and no acute distress Orientation/consciousness: patient oriented x3 Limitations: no limitations Resp: Effort & Inspection: normal respiratory effort Auscultation: clear to auscultation bilaterally Cardio: Rate: regular rate Rhythm: regular rhythm GI: GI Palp: Yes Soft to palpation Auscultation: normal bowel sounds Skin: General skin exam: normal color Rashes: no rashes Neuro: General: patient oriented x3, moves all extremities and no meningeal signs Extrem: Other: Painful right fo
[2023-10-20 20:43] VITALS: BP 142/88; PULSE 74; RESP 18; O2SAT 98
== END 2023-10-20 20:45 | disposition home or self-care (01) ==
PROVIDERS: Emergency Provider Emergency Medicine; PCP Internal Medicine
DX: S92.901A Unspecified fracture of right foot, initial encounter for closed fracture (principal); W18.40XA Slipping, tripping and stumbling without falling, unspecified, initial encounter; J44.9 Chronic obstructive pulmonary disease, unspecified; G62.9 Polyneuropathy, unspecified
CPT/HCPCS: 73610; 73630; 99284; L2112

== ENCOUNTER 2023-11-20 08:06 | Observation (INO) | payer MEDICARE, SELFPAY ==
[2023-11-20] VITALS (11 sets, daily range): BP systolic 151–181; BP diastolic 80–111; PULSE 74–108; RESP 18–22; TEMP 36.6–36.9; O2SAT 88–96; BMI 18.1
--- NOTE | ~2023-11-20 | CT_ITS ---
EXAMINATION: CT brain wo con DATE: 11/20/2023 08:31 INDICATION: Status post fall. Headache. TECHNIQUE: Computed tomography (CT) of the head was performed without intravenous contrast. The dose- length product was 681.00 mGy-cm. Automated exposure control and iterative reconstruction technique w ere employed. COMPARISON: CT dated 11/17/2018 FINDINGS: Mild generalized atrophy. There are scattered moderate periventricular and subcortical whit e matter changes, most likely related to small vessel ischemic disease (microangiopathy). No ventricu lomegaly or midline shift. There is intracranial atherosclerosis. There is mucosal thickening of the paranasal sinuses. Mastoids are pneumatized. No depressed skull fractures. IMPRESSION: 1. No acute intracranial abnormality. 2: Moderate sinus disease. 3: Chronic age-related findings. Reviewed, dictated and finalized at location B.
--- NOTE | ~2023-11-20 | XR_ITS ---
EXAMINATION: XR shoulder LT min 2V DATE: 11/20/2023 08:41 INDICATION: Left shoulder pain. Fall. TECHNIQUE: 3 views of left shoulder were obtained. COMPARISON: Left shoulder radiograph 11/17/2018 FINDINGS: Bone alignment is normal. There is an old healed fracture of surgical neck of proximal left humerus. There is mild osteoarthritis of glenohumeral joint and acromioclavicular joint. IMPRESSION: 1. Polyarticular osteoarthritis. Reviewed, dictated and finalized at location A.
--- NOTE | ~2023-11-20 | XR_ITS ---
EXAMINATION: XR foot RT min 3V DATE: 11/20/2023 08:42 INDICATION: Right foot pain. Fall. TECHNIQUE: 4 views of right foot were obtained. COMPARISON: Right foot radiographs 10/20/2023 FINDINGS: There is a healing transverse fracture of neck of fifth metatarsal with impaction and callu s formation. Osteopenia is noted. There is mild osteoarthritis of second distal interphalangeal joint and talonavicular joint. IMPRESSION: 1. Healing transverse fracture of neck of fifth metatarsal. 2. Mild polyarticular osteoarthritis. Reviewed, dictated and finalized at location A.
--- NOTE | ~2023-11-20 | XR_ITS ---
EXAMINATION: XR chest 1V portable DATE: 11/20/2023 11:08 INDICATION: Cough. TECHNIQUE: A single frontal view of the chest was obtained. COMPARISON: Chest single view 03/10/2022 FINDINGS: There is no pneumonia, pleural effusion, or pneumothorax. The heart size is normal. Calcifi ed mediastinal lymph nodes are consistent with old granulomatous disease. There is an old healed frac ture of proximal left humerus. IMPRESSION: 1. No acute cardiopulmonary disease. Reviewed, dictated and finalized at location A.
--- NOTE | ~2023-11-20 | CT_ITS ---
EXAMINATION: CT cervical spine wo con DATE: 11/20/2023 08:31 INDICATION: Head injury. TECHNIQUE: Computed tomography (CT) of the cervical spine was performed without intravenous contrast. Automated exposure control and iterative reconstruction technique were employed. The dose-length pro duct was 681.00 mGy-cm. COMPARISON: None FINDINGS: There is mild scarring at the lung apices. There is 5 degrees levocurvature of cervical spi ne. The vertebral body heights are normal. There is mildly decreased disc height at C2-C3 and severel y decreased disc height from C4-C5 through C6-C7. The following disc levels are specifically discusse d: C2-C3: There is mild right and severe left uncovertebral joint osteoarthritis. There is mild bilatera l facet joint osteoarthritis. There is mild left neural foraminal stenosis. There is no central canal stenosis. C3-C4: There is moderate right and mild left uncovertebral joint osteoarthritis. There is moderate ri ght and mild left facet joint osteoarthritis. There is mild bilateral neural foraminal stenosis. Ther e is mild central canal stenosis. C4-C5: There is severe bilateral uncovertebral joint osteoarthritis. There is mild bilateral facet joel int osteoarthritis. There is mild bilateral neural foraminal stenosis. There is mild central canal st enosis. C5-C6: There is severe bilateral uncovertebral joint osteoarthritis. There is moderate right and mild left facet joint osteoarthritis. There is moderate right and mild left neural foraminal stenosis. Th ere is mild central canal stenosis. C6-C7: There is severe bilateral uncovertebral joint osteoarthritis. There is moderate bilateral face t joint osteoarthritis. There is mild bilateral neural foraminal stenosis. There is mild central katt l stenosis. C7-T1: There is no uncovertebral joint osteoarthritis. There is severe bilateral facet joint osteoart hritis. There is mild left neural foraminal stenosis. There is no central canal stenosis. IMPRESSION: 1. No fracture. 2. Severe cervical spondylosis. Reviewed, dictated and finalized at location A.
--- NOTE | 2023-11-20 08:08 | ED.FALL ---
HPI - Fall General Chief Complaint: Fall Stated Complaint: Fall/Shoulder pain Time Seen by Provider: 11/20/23 08:08 Source: patient Mode of arrival: EMS Limitations: no limitations History of Present Illness HPI Narrative: Patient is a 78-year-old female with a fall a month ago and broke her left foot which is healing at this time. Orthopedics are following. She got up to use the bathroom this morning and took a fall with some dizziness and near syncope. She did not black out. She is having troubles at home with recurrent falls. She has physical therapy as an outpatient. She injured her left shoulder and right foot. He also landed on her head. complaint: fall Onset (ago): hour(s) (3) Fall from: standing Fall witnessed: no Place fall occurred: home Loss of consciousness: none Prolonged down time: no Symptoms prior to fall: lightheadedness and dizziness Context: tripped/slipped Location of injury: head and other ( Left shoulder and right foot) Location of injury - extremities: Left: shoulder and Right: foot Severity: moderate Severity scale (1-10): 4 Quality: sharp Associated symptoms (after fall): unable to walk ( patient is having unsteady gait due to weakness generalized recurrent) Related Data Home Medications Medication Instructions Recorded Confirmed albuterol sulfate 90 mcg/actuation 2 puff inhalation BID PRN 03/10/22 11/20/23 aerosol inhaler (Ventolin HFA) Shortness Of Breath budesonide 160 mcg-glycopyr 9 1 - 2 inh inhalation DAILY 06/19/23 11/20/23 mcg-formot 4.8 mcg/actuation HFA inhaler (Breztri Aerosphere) cholecalciferol (vitamin D3) 10 10 mcg PO DAILY 07/06/23 11/20/23 mcg (400 unit) tablet (Vitamin D3) food supplemt, lactose-reduced 1 ea PO DAILY 07/06/23 11/20/23 (Ensure oral liquid) polyethylene glycol 3350 17 17 g PO DAILY 07/06/23 11/20/23 gram/dose oral powder (Miralax) psyllium husk 3.4 gram/5.4 gram 1 - 2 tsp PO DAILY PRN Dyspnea 07/06/23 11/20/23 oral powder (Metamucil) Primatene Mist 2 puff inhalation DAILY PRN COPD 11/20/23 11/20/23 Allergies Allergy/AdvReac Type Severity Reaction Status Date / Time fluticasone Allergy Severe RESP Verified 10/20/23 19:20 DISTRESS gadobenic acid Allergy Severe Flushing Verified 10/20/23 19:20 [From contrast - MRI] iodine Allergy Severe NEUROPATHY Verified 10/20/23 19:20 iohexol Allergy Severe Flushing Verified 10/20/23 19:20 [From contrast - CT, X-RAY] Review of Systems Review of Systems: All systems reviewed & are unremarkable except as noted in HPI and below Constitutional: Constitutional: Reports no additional constitutional complaints Eyes: Eyes: Reports no additional eye complaints ENT: Reports system reviewed and no additional complaints, except as documented Cardiovascular: Cardiovascular: Reports no additional cardiovascular complaints Respiratory: Respiratory: Reports no additional respiratory complaints Gastrointestinal: Gastrointestinal: Reports no additional gastrointestinal complaints Genitourinary: Genitourinary: Reports no additional female genitourinary complaints Musculoskeletal: Musculoskeletal: Reports no additional musculoskeletal complaints Integumentary/Breasts: Skin/Breast: Reports system reviewed and no additional complaints, except as docu Neurologic: Reports system reviewed and no additional complaints, except as documented Psychiatric: Psychiatric: Reports no additional psychiatric complaints Endocrine: Endocrine: Reports no additional endocrine complaints Hematologic/Lymphatic: Hematologic/Lymphatic: Reports no additional hematologic/lymphatic complaints Allergic/Immunologic: Allergic/Immunologic: Reports no additional allergic/immunologic complaints PMFSH Past Medical History Medical History Abnormal weight loss Constipation COPD (chronic obstructive pulmonary disease) Decreased appetite Elevated AST (SGOT) Elevated
--- NOTE | 2023-11-20 08:23 | PC.NURSE ---
transported to xray
--- NOTE | 2023-11-20 08:37 | PC.NURSE ---
continues to be in radiology
[2023-11-20] MEDS: ALBUTEROL SULFATE (*SP) INHALER 2 PUFF INHALATION ×3 (08:57→23:30)
--- NOTE | 2023-11-20 09:15 | PC.NURSE ---
Sling placed to left arm. patient was able to stand. Has difficulty bearing weight. Wants to use a walker. Difficulty using walker with sling in place. Pain to right foot from previous fracture. Spoke with patient and ED provider for concern for fall. Patient is concerned that she will fall at home again.
--- NOTE | 2023-11-20 09:28 | PC.NURSE ---
friend has arrives and is at the bedside
--- NOTE | 2023-11-20 09:40 | ECG_ITS ---
SEE SCANNED COPY FOR CONFIRMED REPORT. MTDD
--- NOTE | 2023-11-20 09:46 | PC.NURSE ---
cardiopulmonary notified that EKG is needed
--- NOTE | 2023-11-20 09:47 | PC.NURSE ---
patient being transported to the bathroom for urine sample
--- NOTE | 2023-11-20 09:56 | PC.NURSE ---
lab and cardiopulmonary at the bedside
[2023-11-20 10:08] LABS: Basophils Absolute Auto 0.05 K/mm3 (0.00-0.10); Basophils Percent Auto 0.5 % (0.0-1.0); Eosinophils Absolute Auto 0.07 K/mm3 (0.02-0.50); Eosinophils Percent Auto 0.6 % (1.0-6.0); Hematocrit 44.5 % (35.0-42.0); Hemoglobin 14.1 g/dL (11.7-13.8); Immature Granulocyte Absolute 0.03 K/mm3 (0.00-0.00); Immature Granulocyte Percent A 0.3 % (0.0-0.0); Lymphocytes Absolute Auto 0.93 K/mm3 (1.10-4.50); Lymphocytes Percent Auto 8.6 % (18.0-42.0); Mean Corpuscular HGB Conc 31.7 g/dL (32-36); Mean Corpuscular Hemoglobin 29.4 pg (27.0-31.0); Mean Corpuscular Volume 92.9 fL (78.0-102.0); Mean Platelet Volume 10.2 fl (9.2-11.8); Monocytes Percent Auto 3.7 % (2.0-11.0); Neutrophils Absolute Auto 9.33 K/mm3 (1.70-7.20); Neutrophils Percent Auto 86.3 % (50.0-70.0); Platelet Count Result 253 K/mm3 (150-420); Red Blood Count 4.79 M/mm3 (4.20-5.40); Red Cell Distribution Width 12.9 % (11.6-14.4); White Blood Count 10.8 K/mm3 (4.8-10.8)
[2023-11-20 10:11] LABS: Appearance Urine Clear (Clear); Bilirubin Urine Negative (Negative); Blood Urine Negative (Negative); Color Urine Light Yellow (Yellow); Glucose Urine UA Negative (Negative); Ketones Urine Trace (Negative); Leukocyte Esterase Ur Negative LEU/UL (Negative); Nitrate Urine Negative (Negative); Protein Urine Negative (Negative); Specific Grav Ur 1.015 (1.010-1.020); Urobilinogen Urine 0.2 mg/dL (0.2-1.0); pH Urine 7.5 (5.0-8.0)
[2023-11-20 10:15] LABS: Add Urine Microscopic? YES; Bacteria Urine Trace /hpf; RBC Urine None seen /hpf (0-2); Squamous Epithelial Cell Urine Few /hpf (Few); WBC Urine None seen /hpf (0-3)
--- NOTE | 2023-11-20 10:29 | PC.NURSE ---
patient belongings form filled out and placed with chart
[2023-11-20 10:32] LABS: Alanine Aminotransferase 25 U/L (14-59); Albumin Level 3.9 g/dL (3.4-5.0); Alkaline Phosphatase 102 U/L (46-116); Anion Gap 9 mmol/L (4-12); Aspartate Amino Transferase 26 U/L (15-37); Bilirubin,Total 0.9 mg/dL (0.00-1.00); Blood Urea Nitrogen 8 mg/dL (7-18); Calcium 9.2 mg/dL (8.5-10.1); Carbon Dioxide 31 mmol/L (21-32); Chloride 100 mmol/L (98-108); Estimated CRCL calculation 38 ml/min; Estimated Glomerular Filt Rate > 60; Glucose 106 mg/dL (70-99); Magnesium 1.8 mg/dL (1.8-2.4); Osmolality Calculated 288 mOsm/kg (285-295); Potassium 3.4 mmol/L (3.5-5.1); Sodium 140 mmol/L (136-145); Total Protein 7.5 g/dL (6.4-8.2); Troponin I 6.8 ng/L (0.00-60.4)
[2023-11-20 10:34] LABS: Creatine Kinase 142 U/L (26-192)
[2023-11-20] MEDS: POTASSIUM CHLORIDE 20 MEQ ER TABLET PO (11:00)
--- NOTE | 2023-11-20 11:03 | PC.NURSE ---
xray at the bedside
--- NOTE | 2023-11-20 11:12 | PC.NURSE ---
ED SBAR printed and reviewed.
--- NOTE | 2023-11-20 11:13 | PC.NURSE ---
patient accepted to room 208. VS WNL. patient ready for admission at this time. delayed admission due to awaiting lab results.
--- NOTE | 2023-11-20 11:32 | PM.IMHP ---
H&P: HPI History of Present Illness Date/Time: 11/20/23 11:32 Chief Complaint: fall, left shoulder pain Narrative: This is a 78 year old female patient with history of COPD and nasal allergies who recently fractured her right 5th metatarsal. Patient reports that she was cleared to start wearing her regular shoes again so she quit having her walker near her bed as well. This morning patient suddenly woke up and had to urinate so she quickly jumped up from bed and ended up off balance and falling into the wall with her left shoulder. Patient came to ER for evaluation of left shoulder pain and mild head injury. Imaging shows healing right foot fracture but no other acute abnormalities. Patient reported needing her inhaler for her shortness of breath/COPD so she received a dose in the ER before coming upstairs. ER physician felt patient needed therapy services and now the patient states she cannot return home to care for herself and is looking to get into the intermediate. Review of Systems Review of Systems: All systems reviewed & are unremarkable except as noted in HPI and below PMFSH Past Medical History Medical History Abnormal weight loss Constipation COPD (chronic obstructive pulmonary disease) Decreased appetite Elevated AST (SGOT) Elevated CEA Family hx of colon cancer Fatty pancreas History of small bowel obstruction Pancreatic lesion Total bilirubin, elevated Family History Family History Father Family history of rheumatoid arthritis Hypertension Family history of elevated blood lipids, Onset Age: 90 Patient's father is Mother Family history of rheumatic fever Hypertension Social History Social History Smoking status: Never smoker Second hand tobacco smoke exposure: No Alcohol intake: current Drinks per week: 2 Substance use: never Substance use type: does not use Living arrangements: alone Spiritual care concerns: No Meds Home Medications and Allergies Home Medications Medication Instructions Recorded Confirmed Type albuterol sulfate 90 mcg/actuation 2 puff inhalation BID PRN 03/10/22 11/20/23 History aerosol inhaler (Ventolin HFA) Shortness Of Breath budesonide 160 mcg-glycopyr 9 1 - 2 inh inhalation DAILY 06/19/23 11/20/23 History mcg-formot 4.8 mcg/actuation HFA inhaler (Breztri Aerosphere) cholecalciferol (vitamin D3) 10 10 mcg PO DAILY 07/06/23 11/20/23 History mcg (400 unit) tablet (Vitamin D3) food supplemt, lactose-reduced 1 ea PO DAILY 07/06/23 11/20/23 History (Ensure oral liquid) polyethylene glycol 3350 17 17 g PO DAILY 07/06/23 11/20/23 History gram/dose oral powder (Miralax) psyllium husk 3.4 gram/5.4 gram 1 - 2 tsp PO DAILY PRN Dyspnea 07/06/23 11/20/23 History oral powder (Metamucil) Primatene Mist 2 puff inhalation DAILY PRN COPD 11/20/23 11/20/23 History Allergies Allergy/AdvReac Type Severity Reaction Status Date / Time fluticasone Allergy Severe RESP Verified 10/20/23 19:20 DISTRESS gadobenic acid Allergy Severe Flushing Verified 10/20/23 19:20 [From contrast - MRI] iodine Allergy Severe NEUROPATHY Verified 10/20/23 19:20 iohexol Allergy Severe Flushing Verified 10/20/23 19:20 [From contrast - CT, X-RAY] Vital Signs Vital Signs - 24 hr 11/20/23 08:14 11/20/23 08:59 11/20/23 10:20 Temperature 36.9 C Pulse Rate 74 78 86 Respiratory Rate 18 18 22 H Blood Pressure 158/111 H 160/80 H Pulse Oximetry 95 96 96 Oxygen Delivery Room Air Room Air Room Air 11/20/23 11:18 11/20/23 09:02 Temperature 36.6 C Pulse Rate 79 78 Respiratory Rate 18 Blood Pressure 163/85 H 160/80 H Pulse Oximetry 96 96 Oxygen Delivery Room Air Exam Const: General: healthy appearing Nutritional Appearance: well nourished O
--- NOTE | 2023-11-20 11:43 | PC.NURSE ---
Pt arrived to room via wheelchair.
--- NOTE | 2023-11-20 13:16 | ADMGEN ---
Addendum entered by Alice Mirza RN 11/20/23 13:16: Pt admitted at 1143, note entered late. Original Note: This patient, Salma Zaldivar, was admitted to 2nd Floor Room 209-1. Patient/family oriented to hospital policies and general routines including ID bracelet, bed and alarms, visiting hours, pain management, procedures, bathroom and other care routines, personal items, smoking policy, room service/diet, and visiting hours. Information on how to activate the Rapid Response Team has been discussed. Patient/Family are encouraged to report perceived risks to care and to ask questions if they do not understand what they are told or what they should do.
[2023-11-20] MEDS: amLODIPine BESYLATE 5 MG TABLET PO (15:25)
[2023-11-20] MEDS: ACETAMINOPHEN 325 MG TABLET 650 MG PO (20:45)
--- NOTE | 2023-11-20 23:38 | PC.NURSE ---
Can Ochoa NP, notified of pt's c/o shortness of breath and low SAO2 of 88%. New order for oxygen at 2 liters per nasal cannula.
[2023-11-21] VITALS: BP 137/72; PULSE 97; RESP 22; TEMP 36.9; O2SAT 94
--- NOTE | 2023-11-21 05:45 | PC.NURSE ---
Pt called and said she was having difficulty breathing. Can Ochoa NP notified of pt's situation and new orders were recieved and noted for a nebulizer treatment and a 1x order for xanax o.25 mg
[2023-11-21 06:05] VITALS: PULSE 96; RESP 22; O2SAT 94
[2023-11-21] MEDS: IPRATROPIUM 0.5 MG/ALBUTEROL SULFATE 2.5 MG AMPUL.NEB 3 ML INHALATION (06:07)
--- NOTE | 2023-11-21 06:25 | PC.NURSE ---
Can Ochoa NP notified of pt's request to use Nasalcrom 5.2 mg from home; New order recieved and noted for Nasalcrom.
[2023-11-21 07:03] VITALS: PULSE 84; RESP 20; O2SAT 99
[2023-11-21 08:00] VITALS: BP 151/75; PULSE 92; RESP 16; TEMP 36.1; O2SAT 99
[2023-11-21 08:30] VITALS: O2SAT 95
[2023-11-21 08:48] LABS: Basophils Absolute Auto 0.04 K/mm3 (0.00-0.10); Basophils Percent Auto 0.5 % (0.0-1.0); Eosinophils Absolute Auto 0.19 K/mm3 (0.02-0.50); Eosinophils Percent Auto 2.6 % (1.0-6.0); Hematocrit 42.7 % (35.0-42.0); Hemoglobin 13.8 g/dL (11.7-13.8); Immature Granulocyte Absolute 0.01 K/mm3 (0.00-0.00); Immature Granulocyte Percent A 0.1 % (0.0-0.0); Lymphocytes Percent Auto 16.2 % (18.0-42.0); Mean Corpuscular HGB Conc 32.3 g/dL (32-36); Mean Corpuscular Hemoglobin 29.9 pg (27.0-31.0); Mean Corpuscular Volume 92.6 fL (78.0-102.0); Mean Platelet Volume 10.1 fl (9.2-11.8); Monocytes Percent Auto 6.8 % (2.0-11.0); Neutrophils Absolute Auto 5.45 K/mm3 (1.70-7.20); Neutrophils Percent Auto 73.8 % (50.0-70.0); Platelet Count Result 234 K/mm3 (150-420); Red Blood Count 4.61 M/mm3 (4.20-5.40); Red Cell Distribution Width 13.2 % (11.6-14.4); White Blood Count 7.4 K/mm3 (4.8-10.8)
[2023-11-21 09:12] LABS: Alanine Aminotransferase 24 U/L (14-59); Albumin Level 3.6 g/dL (3.4-5.0); Alkaline Phosphatase 93 U/L (46-116); Anion Gap 8 mmol/L (4-12); Aspartate Amino Transferase 24 U/L (15-37); Bilirubin,Total 1.1 mg/dL (0.00-1.00); Blood Urea Nitrogen 12 mg/dL (7-18); Carbon Dioxide 32 mmol/L (21-32); Chloride 100 mmol/L (98-108); Estimated CRCL calculation 33 ml/min; Estimated Glomerular Filt Rate > 60; Glucose 151 mg/dL (70-99); Osmolality Calculated 292 mOsm/kg (285-295); Potassium 3.5 mmol/L (3.5-5.1); Sodium 140 mmol/L (136-145); Total Protein 7.2 g/dL (6.4-8.2)
[2023-11-21] MEDS: CHOLECALCIFEROL 400 UNITS TABLET (VIT D) PO (09:29)
[2023-11-21] MEDS: amLODIPine BESYLATE 5 MG TABLET PO (09:29)
[2023-11-21] MEDS: polyethylene glycoL 3350 17 GM POWD.PACK PO (09:29)
[2023-11-21 10:01] LABS: Magnesium 1.7 mg/dL (1.8-2.4)
--- NOTE | 2023-11-21 10:37 | PM.DS ---
DS: Admitting Diagnosis Discharge Date 11/21/23 Admitting Diagnosis fall DS: Discharge Diagnosis Discharge Diagnosis (1) Near syncope: Code(s): R55 - Syncope and collapse Status: Acute Assessment and Plan: -Sounds like may have been due to orthostatic changes as patient tried to get up in a hurry and ambulate to restroom without walker -Ordered orthostatic vital signs (2) Contusion of left shoulder: Qualifiers: Encounter type: initial encounter Qualified Code(s): S40.012A - Contusion of left shoulder, initial encounter Code(s): S40.012A - Contusion of left shoulder, initial encounter Status: Acute Assessment and Plan: -X-ray negative for fracture, patient states it just hasn't showed up on imaging yet but it must be broken due to how much pain it is causing her -Sling as ordered by ER -Patient states she will need facility/intermediate placement (3) Falls: Qualifiers: Encounter type: initial encounter Qualified Code(s): W19.XXXA - Unspecified fall, initial encounter Code(s): W19.XXXA - Unspecified fall, initial encounter Status: Acute Assessment and Plan: -Several falls at home, prior fractured right foot -PT/OT ordered (4) General weakness: Code(s): R53.1 - Weakness Status: Acute Assessment and Plan: -PT/OT ordered (5) COPD (chronic obstructive pulmonary disease): Qualifiers: COPD type: chronic bronchitis Code(s): J44.9 - Chronic obstructive pulmonary disease, unspecified Status: Acute Assessment and Plan: -Continue home medications -Family to check for her NasalCrom nasal spray at home DS: Summary Hospital Course Reason for hospitalization: fall Hospital Course: This is a 78 year old female with a PMH of COPD and nasal allergies who recently fractured her right 5th metatarsal.? Patient reports that she was cleared to start wearing her regular shoes again so she quit having her walker near her bed as well.? This morning patient suddenly woke up and had to urinate so she quickly jumped up from bed and ended up off balance and falling into the wall with her left shoulder.? Patient came to ER for evaluation of left shoulder pain and mild head injury.? Imaging shows healing right foot fracture but no other acute abnormalities. Today she is doing well with not complaints other than tenderness and soreness to her left shoulder. She has a sling in place. She is being discharged today to [facility], private pay for further assistance while she heals. She reports having some shortness of breath overnight but it was improved with an albuterol nebulizer. She normally would take her inhaler but it was only ordered BID. She states that her breathing is at baseline today. She is eating a drinking appropriately and voiding without difficulty. Status at Discharge Cognitive/behavioral status at discharge: A&Ox4 Time Spent with Patient Time attestation: Total time spent providing and/or coordinating discharge services:54 Exam Narrative: General: well appearing, thin, subcutaneous fat loss, appears stated age. HEENT: normocephalic, atraumatic. Mucous membranes moist. EOMI, PERRLA, bilateral sclera anicteric, no conjunctival injection. Neck supple without JVD, lymphadenopathy, or bruit. Respiratory: clear to auscultation bilaterally. No rales/rhonic/wheezes. Cardiovascular: Regular rate and rhythm, normal S1-S2 upon auscultation. No murmurs, rubs, or clicks. PMI is nondisplaced, capillary refill less than 3 second. Abdomen: Soft, round, no pulsatile masses, nondistended and nontender. No rebound, no guarding. No CVA tenderness, no hepatosplenomegaly. Bowel sounds present to all four quadrants. No high pitch or tinkling sounds, resonant to percussion. Extremities: No cyanosis, clubbing, or edema present. Pulses are palpable 2/2. Left arm in sling with limited ROM due to pain. Neuro: Alert an
[2023-11-21] MEDS: MAGNESIUM OXIDE 400 MG TABLET PO (11:14)
[2023-11-21 13:12] VITALS: O2SAT 95
--- NOTE | 2023-11-21 13:17 | PC.NURSE ---
Pt transported via wheelchair and assisted into private vehicle of [facility] employee.
--- NOTE | 2023-11-22 09:17 | PC.NURSE ---
Discharged to [facility], no questions regarding dc instructions
== END 2023-11-21 13:10 ==
LOC: CHSED 10:29 → CHS2ND 11:15
PROVIDERS: Nurse Practitioner Acute Care; Admitting Provider Internal Medicine; Emergency Provider Emergency Medicine; PCP Internal Medicine; Visit Provider Internal Medicine
DX: R55 Syncope and collapse (principal); S40.012A Contusion of left shoulder, initial encounter; I10 Essential (primary) hypertension; J44.9 Chronic obstructive pulmonary disease, unspecified; K86.9 Disease of pancreas, unspecified; M47.812 Spondylosis without myelopathy or radiculopathy, cervical region; S92.351D Displaced fracture of fifth metatarsal bone, right foot, subsequent encounter for fracture with routine healing; R29.6 Repeated falls; W19.XXXA Unspecified fall, initial encounter; Z80.0 Family history of malignant neoplasm of digestive organs
CPT/HCPCS: 36415; 70450; 71045; 72125; 73030; 73630; 80053; 81001; 82550; 83735; 84484; 85025; 93005; 94640; 97116; 97161; 97530; 99285; A4565; A9270; G0378

== ENCOUNTER 2024-01-02 13:43 | Outpatient (RCR) | payer MEDICARE, SELFPAY ==
--- NOTE | 2023-11-23 13:57 | PCPTNOTE ---
patient's evaluation was cancelled today. she is in the assisted.
--- NOTE | 2024-01-02 14:32 | OPREHPOC ---
Outpatient Therapy Plan of Care This is a Multidisciplinary Plan of Care that may contain components documented by all disciplines (PT, OT, and ST.) PT Problem 1 PT Problem #1 Knowledge Deficit PT Goal 1 Goal 1. independent and compliant with HEP Target Visit 6 PT Problem 2 PT Problem #2 Impaired Strength PT Goal 1 Goal 1. improve bilateral hip strength to 4+/5 or better 2. improve bilateral knee strength to 5/5 3. improve bilateral ankle DF to 5/5 Target Visit 12 PT Problem 3 PT Problem #3 Impaired Balance PT Goal 1 Goal 1. tug to be completed in under 15 seconds 2. 5x sit to stand to be completed in under 12 seconds 3. tinetti to display moderate fall risk or less Target Visit 12 PT Problem 4 PT Problem #4 Impaired Functional Mobil PT Goal 1 Goal 1. patient to ambulate 600ft or more in 6 minutes with most appropriate AD 2. patient to report feeling confident with most appropriate AD. 3. patient to consistently ambulate with step through bilateral LE mechanics during gait cycle 4. patient to return to grocery store shopping 5. patient to return to gardening Target Visit 12
--- NOTE | 2024-01-02 14:33 | PTOPEVAL1 ---
Assessment and note entered by JT [employer], PT Evaluation Information Assessment Status Evaluation Diagnosis unsteady gait Onset 11/16/23 Subjective Information patient reports she is coming to therapy to improve her balance, strength, and endurance. she reports she would like to learn to walk properly with a cane. she reports she does have a walker. she reports she uses a walker at night. she reports she has fallen. she reports her last fall was on 11/20/23. she reports [facility] this fall. she reports she is back home now. she reports she lives alone. she reports she does drive. she reports she would like to get back to gardening, ambulate steps, walk a grocery store distance, get in and out a car, and get over her fear of falling. she reports she is unsure what causes her to fall. she reports she has had 2 falls this year. she reports she does have neuropathy. Reported Pain Level Pain Score 0: Self Report Assessment PT Clinical Summary mrs. mckeon is a 78 yo woman who presents to skilled PT services for evaluation and treatment of balance issues/frequent falls. she presents today with a high fall risk per the tinetti, tug, and 5x sit to stand. she also presents with decreased ambulation speed/endurance and LE weakness. she would benefit from continued skilled PT to improve her balance/safety, decrease falls risk, and improve her other objective/functional deficits to improve her quality of life and functional activity performance. Plan of Care Interventions Gait Training,Neuro Re-education,Patient/Caregiver Educati,Therapeutic Activities,Therapeutic Exercise PT Services Indicated Yes Treatment Frequency and 3x weekly for 12 visits Duration These treatments will address the objective and functional deficits as defined above. The patient will be advanced safely and appropriately in order for the patient to progress towards his/her prior level of function. Additional exercises will be introduced and as well as a comprehensive home exercise program upon discharge, if needed, ?to ensure carryover of functional gains achieved in the clinic. This treatment plan has been reviewed and agreement upon by the patient.
--- NOTE | 2024-01-30 14:27 | PTOPPROG ---
Assessment and note entered by [facility] Evaluation Information Assessment Status Progress Diagnosis unsteady gait Onset 11/16/23 Subjective Information Pt. reports that she is doing better overall. She notes that she is able to go down her basement steps, which she was not capable of doing prior to beginning therapy. Assessment PT Clinical Summary Mrs. Zaldivar has attended a total of 10 treatment sessions. In this time she has demonstrated progress in regards to balance and strength, but still presents as a high fall risk. Continued skilled PT is indicated in order to improve these areas to allow the pt. to be able to complete all IADL's. Plan of Care Interventions Gait Training,Neuro Re-education,Patient/Caregiver Educati,Therapeutic Activities,Therapeutic Exercise PT Services Indicated Yes Treatment Frequency and Continue with 2 additional sessions on patient POC Duration focused on continued improvements in balance and gait efficiency. These treatments will address the objective and functional deficits as defined above. The patient will be advanced safely and appropriately in order for the patient to progress towards his/her prior level of function. Additional exercises will be introduced and as well as a comprehensive home exercise program upon discharge, if needed, ?to ensure carryover of functional gains achieved in the clinic. This treatment plan has been reviewed and agreement upon by the patient.
--- NOTE | 2024-02-06 14:39 | OPREHPOC ---
Outpatient Therapy Plan of Care This is a Multidisciplinary Plan of Care that may contain components documented by all disciplines (PT, OT, and ST.) PT Problem 1 PT Problem #1 Knowledge Deficit PT Goal 1 Goal 1. independent and compliant with HEP Target Visit 6 Progress Met PT Problem 2 PT Problem #2 Impaired Strength PT Goal 1 Goal 1. improve bilateral hip strength to 4+/5 or better 2. improve bilateral knee strength to 5/5 3. improve bilateral ankle DF to 5/5 Target Visit 12 Progress Met PT Problem 3 PT Problem #3 Impaired Balance PT Goal 1 Goal 1. tug to be completed in under 15 seconds. not met 2. 5x sit to stand to be completed in under 12 seconds. met 3. tinetti to display moderate fall risk or less. met Target Visit 12 Progress Partially Met PT Problem 4 PT Problem #4 Impaired Functional Mobil PT Goal 1 Goal 1. patient to ambulate 600ft or more in 6 minutes with most appropriate AD. met 2. patient to report feeling confident with most appropriate AD. met 3. patient to consistently ambulate with step through bilateral LE mechanics during gait cycle. met 4. patient to return to grocery store shopping. met 5. patient to return to gardening. not met Target Visit 12 Progress Partially Met
--- NOTE | 2024-02-06 14:39 | PTOPDC ---
Assessment and note entered by JT File, PT Evaluation Information Assessment Status Discharge Diagnosis unsteady gait Other ICD-10 Condition Codes ( R26.89 PT) Onset 11/16/23 Subjective Information patient reports she is doing well lately. she reports she has had no falls recently. she reports she has been trying to take longer steps while walking. she reports she is ready to be done with therapy today. she reports she is interested in the fall prevention class. Reported Pain Level Pain Score 0: Self Report Assessment PT Clinical Summary mrs. samayoa presents to skilled PT for her 12th skilled therapy visit. she presents today with improved transfer and ambulation safety/ independence, increased ambulation endurance, improved LE strength, and improved balance. she has partially met or met all goals for skilled PT. she is only one second off from meeting TUG goal, and has not tried to return to gardening yet. she will be DC'd from skilled PT services today, and continue with HEP independent. she was educated to attend the 2x weekly fall prevention class and given and information flyer. Plan of Care PT Services Indicated Yes
== END 2024-02-06 15:05 | disposition home or self-care (01) ==
LOC: CHSPT 13:43
PROVIDERS: Visit Provider Orthopaedic Surgery
DX: R26.89 Other abnormalities of gait and mobility (principal)
CPT/HCPCS: 97110; 97112; 97161; 97530; 97750